=== PATIENT | female | born 1995 | race Caucasian/White ===

== ENCOUNTER 2025-06-27 18:55 | Emergency (ER) | payer MEDICAID, OTHER ==
[2025-06-27 19:38] LABS: Pregnancy Test - Urine (BHCG) Negative (Negative); Pregu Control Background? CLEAR/WHITE (CLR/WHITE); Pregu Control Bar Appear? YES (CONTROL BAR)
== END 2025-06-27 20:24 | disposition home or self-care (01) ==
LOC: MADERS 18:55
DX: J06.9 Acute upper respiratory infection, unspecified (principal); R42 Dizziness and giddiness; R29.700 NIHSS score 0; F19.239 Other psychoactive substance dependence with withdrawal, unspecified
CPT/HCPCS: 81025; 87426; 99284

== ENCOUNTER 2025-09-18 23:43 | Emergency (ER) | payer MEDICAID ==
[2025-09-19] MEDS ORDERED: Bacitracin 1 PK ONE (00:09)
== END 2025-09-19 00:13 | disposition home or self-care (01) ==
LOC: MADERS 23:43
DX: L02.91 Cutaneous abscess, unspecified (principal)
CPT/HCPCS: 99283